=== PATIENT | female | born 1975 | race Caucasian/White ===

== ENCOUNTER 2017-06-27 03:20 | Emergency (ER) | payer SELFPAY ==
[~2017-06-27] VITALS: Ht 162.6 cm; Wt 50.0 kg
[~2017-06-27 03:20] MED LIST: ALBU8I INH; IBUP600T26 PO; ROBA750T3 PO
[2017-06-27 03:22] VITALS: BP 147/81; PULSE 88; RESP 16; TEMP 98.1; O2SAT 100
[2017-06-27] MEDS ORDERED: MECLIZINE HCL 25 MG TAB PO ONE (06:00)
[2017-06-27] MEDS ORDERED: ACETAMIN 325 MG/BUTALBITAL 50 MG/CAFFEINE 40 MG TAB PO ONE (06:30)
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
--- NOTE | 2017-06-27 06:49 | RADRPT ---
EXAM DATE/TIME: 06/27/2017 06:37 [facility] COMPARISON: CT BRAIN W/O CONTRAST, October 17, 2015, 13:39. INDICATIONS : Dizziness RADIATION DOSE: 37.96 CTDIvol (mGy) MEDICAL HISTORY : None SURGICAL HISTORY : None. ENCOUNTER: Initial ACUITY: 1 day PAIN SCALE: 0/10 LOCATION: cranial TECHNIQUE: Multiple contiguous axial images were obtained of the head. Using automated exposure control and adjustment of the mA and/or kV according to patient size, radiation dose was kept as low as reasonably achievable to obtain optimal diagnostic quality images. DICOM format image data is av ailable electronically for review and comparison. FINDINGS: There is no evidence for intracranial hemorrhage, mass effect, mass lesions, edema, or extra-axial fl uid hemorrhagic collections. Arachnoid cyst is again seen in the left middle cranial fossae measures 3.5 cm and not changed. The visualized bony structures appear intact. The ventricles are normal siz e for the patient's age. There are no signs of acute infarction for technique. CONCLUSION: Stable arachnoid cyst on the left side and no acute process. Haleigh Thompson MD on June 27, 2017 at 6:45 Board Certified Radiologist. This report was verified electronically.
[2017-06-27] MEDS ORDERED: MECL-62 PO (06:51)
[2017-06-27] MEDS ORDERED: BUTA1CAP PO (06:51)
[2017-06-27 08:04] VITALS: BP 131/74; PULSE 88; RESP 16; TEMP 98.1; O2SAT 98
[2017-06-27 08:54] VITALS: RESP 16
== END 2017-06-27 09:16 | disposition home or self-care (01) ==
LOC: NEPE 03:20
DX: R42 Dizziness and giddiness (principal); R51 Headache; G93.0 Cerebral cysts; F14.90 Cocaine use, unspecified, uncomplicated; F12.90 Cannabis use, unspecified, uncomplicated; J45.909 Unspecified asthma, uncomplicated; I10 Essential (primary) hypertension; R56.9 Unspecified convulsions; F17.200 Nicotine dependence, unspecified, uncomplicated
CPT/HCPCS: 70450; 84703; 99283

== ENCOUNTER 2017-11-16 23:31 | Inpatient (IN) ==
[2017-11-17] MEDS ORDERED: Sod Chloride 0.9% Inj 1,000 ML IV.SIG ONE (05:18)
[2017-11-17 05:42] LABS: Baso % (Auto) 0.5 % (0.0-2.0); Eos # (Auto) 0.2 th/mm3 (0.0-0.4); Eos % (Auto) 4.2 % (0.0-4.0); Hematocrit 33.1 % (35.0-46.0); Hemoglobin 10.8 gm/dL (11.6-15.3); Lymph # (Auto) 1.4 th/mm3 (1.0-4.8); Mean Corpuscular HGB Conc 32.5 % (32.0-36.0); Mean Corpuscular Hemoglobin 25.5 pg (27.0-34.0); Mean Corpuscular Volume 78.5 fL (80.0-100.0); Mean Platelet Volume 6.7 fL (7.0-11.0); Mono # (Auto) 0.2 th/mm3 (0.0-0.9); Mono % (Auto) 4.6 % (0.0-8.0); Neut # (Auto) 2.2 th/mm3 (1.8-7.7); Neut % (Auto) 55.7 % (16.0-70.0); Platelet Count 338 th/mm3 (150-450); Red Blood Count 4.22 mil/mm3 (4.00-5.30); Red Cell Distribution Width 16.2 % (11.6-17.2); White Blood Count 3.9 th/mm3 (4.0-11.0)
[2017-11-17 06:04] LABS: Anion Gap 12 meq/L (5-15); Blood Urea Nitrogen 10 mg/dL (7-18); Calcium 8.5 mg/dL (8.5-10.1); Carbon Dioxide 18.5 meq/L (21.0-32.0); Chloride 112 meq/L (98-107); Glomerular Filtration Rate Greater Than 89 mL/min (>89); Glucose,Random 83 mg/dL (74-106); Potassium 3.2 meq/L (3.5-5.1); Sodium 142 meq/L (136-145)
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
[2017-11-17] MEDS ORDERED: Ampicillin/Sulbactam Inj 3 GM in Sodium Chloride 0.9% Inj 100 ML IV.SIG ONE (07:49)
[2017-11-17] MEDS ORDERED: Morphine Inj 4 MG/ML Vial IV.PUSH ONE (07:49)
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
[2017-11-17] MEDS ORDERED: Bisacodyl 10 MG Supp RECTAL PRN (08:43)
[2017-11-17] MEDS ORDERED: Acetaminophen 325 MG Tablet PO PRN (08:43)
[2017-11-17] MEDS ORDERED: Sod Chloride 0.9% Inj 1,000 ML IV.CONT SCH (09:30)
[2017-11-17] MEDS: Senna/Docusate Sodium 8.6/50 MG Tablet PO SCH ×2 (09:45→20:27)
--- NOTE | 2017-11-17 10:12 | CT ---
EXAM DATE: 11/17/2017 9:58 AM EDT AGE/SEX: 42 years / Female INDICATIONS: Facial injury. Jaw pain. CLINICAL DATA: This is the patient's initial encounter. Patient reports that signs and symptoms have been present for 1 day and indicates a pain score of 10/10. MEDICAL/SURGICAL HISTORY: . Seizure. Brain cyst. Asthma. None. RADIATION DOSE: . CTDI (mGy) ; Reconstructed from previous dataset, no dose COMPARISON: No prior exams available for comparison. TECHNIQUE: Contiguous images in the axial and coronal planes were obtained using helical multirow de tector technique with 80 ml Omnipaque 350 (iohexol) nonionic water-soluble contrast as a single exam dose. Using automated exposure control and adjustment of the mA and/or kV according to patient size , radiation dose was kept as low as reasonably achievable to obtain optimal diagnostic quality images . DICOM format image data is available electronically for review and comparison. FINDINGS: An oblique nondisplaced fracture is identified through the right mandibular ramus. There is an associ ated mild distraction fracture through the anterior left body of the mandible. Significant overlying soft tissue swelling hematoma is seen along the left mandibular body. The orbits, zygomatic arches and maxillary alba are intact. A nondisplaced fracture is identified through the right lateral pterygoid process. Base of the skull is intact. CONCLUSION: 1. Mandibular fractures involving the right ramus and left body as described 2. Nondisplaced fracture of the right pterygoid plate 3. Significant soft tissue swelling and hematoma along the left body of the mandible. Electronically signed by: Carlitos England MD 11/17/2017 10:11 AM EDT
[2017-11-17 10:44] LABS: Activated Partial Thrombo Time 25.4 sec (24.3-30.1); INR 1.2 Ratio
[2017-11-17] MEDS ORDERED: Naloxone Inj 0.4 MG/ML Vial IV.PUSH PRN (12:57)
[2017-11-17] MEDS ORDERED: Morphine Sulfate Inj 2 MG/ML Vial IV.PUSH PRN (12:57)
[2017-11-17 13:29] LABS: Albumin 2.6 g/dL (3.4-5.0)
[2017-11-17 13:31] LABS: Total Protein 6.3 g/dL (6.4-8.2)
[2017-11-17] MEDS: Morphine Inj 4 MG/ML Vial IV.PUSH PRN ×4 (14:30→23:56)
[2017-11-17] MEDS ORDERED: Potassium Chloride Inj 40 MEQ in Sod Chloride 0.9% Inj 1,000 ML IV.CONT SCH (15:48)
[2017-11-17] MEDS: Pantoprazole Inj 40 MG Vial IV.PUSH SCH (15:53)
[2017-11-17] MEDS ORDERED: Haloperidol Inj 5 MG/ML Ampul IV.PUSH PRN (16:39)
[2017-11-17] MEDS ORDERED: LORazepam 1 MG Tablet PO PRN (16:39)
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
[2017-11-17 22:29] LABS: Amphetamine Screen,Urine Neg (Neg); Barbiturate Screen,Urine Neg (Neg); Cannabinoid Screen,Urine Neg (Neg); Cocaine Screen,Urine Pos (Neg)
[2017-11-17 22:30] LABS: Opiate Screen,Urine Pos (Neg)
[2017-11-17] MEDS: Ampicillin/Sulbactam Inj 3 GM in Sodium Chloride 0.9% Inj 100 ML IV.SIG SCH (23:54)
[2017-11-18] MEDS: Morphine Inj 4 MG/ML Vial IV.PUSH PRN ×4 (02:54→13:52)
[2017-11-18] MEDS: Ampicillin/Sulbactam Inj 3 GM in Sodium Chloride 0.9% Inj 100 ML IV.SIG SCH ×4 (02:55→16:06)
[2017-11-18] MEDS ORDERED: Chlorhexidine Gluconate 2% 1 Pack (2 Cloths) TOPICAL SCH ×2 (06:30→09:45)
[2017-11-18] MEDS ORDERED: Metoprolol Tartrate 25 MG Tablet PO SCH ×2 (06:30→09:45)
[2017-11-18] MEDS ORDERED: Sodium Chlor 0.9% Inj 500 ML IV.SIG SCH ×2 (07:00→10:00)
[2017-11-18 11:02] LABS: Baso % (Auto) 0.5 % (0.0-2.0); Eos # (Auto) 0.2 th/mm3 (0.0-0.4); Eos % (Auto) 4.4 % (0.0-4.0); Hemoglobin 10.5 gm/dL (11.6-15.3); Lymph # (Auto) 1.5 th/mm3 (1.0-4.8); Lymph % (Auto) 32.7 % (9.0-44.0); Mean Corpuscular HGB Conc 32.7 % (32.0-36.0); Mean Corpuscular Hemoglobin 25.6 pg (27.0-34.0); Mean Corpuscular Volume 78.3 fL (80.0-100.0); Mean Platelet Volume 6.9 fL (7.0-11.0); Mono # (Auto) 0.3 th/mm3 (0.0-0.9); Mono % (Auto) 6.7 % (0.0-8.0); Neut # (Auto) 2.5 th/mm3 (1.8-7.7); Neut % (Auto) 55.7 % (16.0-70.0); Platelet Count 281 th/mm3 (150-450); Red Blood Count 4.08 mil/mm3 (4.00-5.30); Red Cell Distribution Width 16.6 % (11.6-17.2); White Blood Count 4.5 th/mm3 (4.0-11.0)
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
[2017-11-18 11:30] LABS: Albumin 2.6 g/dL (3.4-5.0); Anion Gap 9 meq/L (5-15); Aspartate Aminotransferase 59 U/L (15-37); Blood Urea Nitrogen 3 mg/dL (7-18); Calcium 8.5 mg/dL (8.5-10.1); Carbon Dioxide 23.3 meq/L (21.0-32.0); Chloride 113 meq/L (98-107); Glomerular Filtration Rate Greater Than 89 mL/min (>89); Glucose,Random 75 mg/dL (74-106); Magnesium 1.7 mg/dL (1.5-2.5); Potassium 3.6 meq/L (3.5-5.1); Sodium 145 meq/L (136-145)
[2017-11-18 11:31] LABS: Alanine Aminotransferase 71 U/L (10-53)
[2017-11-18 11:33] LABS: Alkaline Phosphatase 390 U/L (45-117); Total Protein 6.1 g/dL (6.4-8.2)
[2017-11-18] MEDS ORDERED: Lidocaine PF 1% Inj 5 ML Syringe INFILTRATN ONE (12:00)
[2017-11-18] MEDS ORDERED: Glycopyrrolate Inj 1 MG/5 ML Syringe IV.PUSH ONE (12:00)
[2017-11-18] MEDS ORDERED: Phenylephrine/NS 1000 MCG/10ML Syringe IV.PUSH ONE (12:00)
[2017-11-18] MEDS ORDERED: Neostigmine Inj 5 MG/5 ML Syringe IV.PUSH ONE (12:00)
[2017-11-18 12:20] LABS: Hepatitis A IgM Antibody Nonreactive (Nonreactive); Hepatitits B Surface Antigen Nonreactive (Nonreactive)
[2017-11-18] MEDS ORDERED: Chlorhexidine Gluconate 0.12% Liq 15 ML UDC ONE (16:21)
[2017-11-18] MEDS ORDERED: Bupivacaine/Epinephrine PF Inj 0.5% 10 ML Vial ONE (16:21)
[2017-11-18] MEDS ORDERED: Lidocaine 2%/Epinephrine 1:200,000 PF Inj 20 ML Vial ONE (16:21)
[2017-11-18] MEDS ORDERED: Microfibrillar Collagen Hemostat 1 GM Packet TOPICAL ONE (18:27)
[2017-11-18] MEDS ORDERED: fentaNYL Citrate Inj 100 MCG/2 ML Ampul ONE ×2 (19:16)
[2017-11-18] MEDS ORDERED: *Meperidine Inj 25 MG/ML Vial PERIprocedural Use ONLY ONE (19:17)
--- NOTE | 2017-11-18 19:21 | P.PCN ---
Date of procedure: 11/18/17 Pre-op diagnosis: left mandible body fracture/ right mandible subcondylar fracture Post-op diagnosis: same Procedure: ORIF left mandible body fracture/ CR right mandible subcondylar fracture( elastics) Anesthesia: GETA, local (2%lidocaine with 1:200,000 epi x 10cc; 0.5%marcaine with 1:200:000 epi 3cc) Surgeon: Robi Nath Estimated blood loss (mL): 30 Pathology: none sent Condition: stable Disposition: PACU
[2017-11-18] MEDS ORDERED: MethylPREDNISolone Sod Succinate Inj 125 MG/2 ML Vial IV.PUSH ONE (19:42)
[2017-11-18] MEDS ORDERED: *morphine SULFATE 4 MG/ML PERIprocedure ONLY ONE ×2 (19:45→20:09)
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
[2017-11-18] MEDS ORDERED: *Ondansetron Inj 4 MG/2 ML Vial PERIprocedural Use ONLY ONE (20:09)
[2017-11-18] MEDS ORDERED: *Promethazine Inj 25 MG/ML Vial PERIprocedural use ONLY ONE (20:12)
[2017-11-19] MEDS: Morphine Inj 4 MG/ML Vial IV.PUSH PRN ×6 (00:17→20:05)
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
[2017-11-19] MEDS: Senna/Docusate Sodium 8.6/50 MG Tablet PO SCH (08:03)
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
[2017-11-19] MEDS: Ampicillin/Sulbactam Inj 3 GM in Sodium Chloride 0.9% Inj 100 ML IV.SIG SCH ×3 (11:53→15:51)
[2017-11-19] MEDS: Pantoprazole Inj 40 MG Vial IV.PUSH SCH ×2 (15:50→15:51)
[2017-11-20] MEDS: Morphine Inj 4 MG/ML Vial IV.PUSH PRN ×2 (03:19→06:39)
[2017-11-20] MEDS: Ampicillin/Sulbactam Inj 3 GM in Sodium Chloride 0.9% Inj 100 ML IV.SIG SCH ×4 (03:20→17:57)
[2017-11-20] MEDS: Senna/Docusate Sodium 8.6/50 MG Tablet PO SCH ×3 (06:19→10:05)
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
[2017-11-20] MEDS: Acetaminophen-HYDROcodone 325/7.5 Liq 15 ML UDC PO PRN ×2 (10:50→17:54)
[2017-11-20 12:11] LABS: Baso % (Auto) 0.3 % (0.0-2.0); Eos # (Auto) 0.1 th/mm3 (0.0-0.4); Eos % (Auto) 1.1 % (0.0-4.0); Hematocrit 29.9 % (35.0-46.0); Hemoglobin 9.7 gm/dL (11.6-15.3); Lymph # (Auto) 1.9 th/mm3 (1.0-4.8); Lymph % (Auto) 31.1 % (9.0-44.0); Mean Corpuscular HGB Conc 32.4 % (32.0-36.0); Mean Corpuscular Hemoglobin 25.4 pg (27.0-34.0); Mean Corpuscular Volume 78.3 fL (80.0-100.0); Mean Platelet Volume 7.1 fL (7.0-11.0); Mono # (Auto) 0.4 th/mm3 (0.0-0.9); Mono % (Auto) 6.5 % (0.0-8.0); Neut # (Auto) 3.7 th/mm3 (1.8-7.7); Platelet Count 293 th/mm3 (150-450); Red Blood Count 3.81 mil/mm3 (4.00-5.30); Red Cell Distribution Width 16.3 % (11.6-17.2)
[2017-11-20 12:38] LABS: Alanine Aminotransferase 38 U/L (10-53); Albumin 2.6 g/dL (3.4-5.0); Alkaline Phosphatase 364 U/L (45-117); Anion Gap 7 meq/L (5-15); Aspartate Aminotransferase 17 U/L (15-37); Blood Urea Nitrogen 4 mg/dL (7-18); Calcium 8.1 mg/dL (8.5-10.1); Carbon Dioxide 28.6 meq/L (21.0-32.0); Carbon Dioxide 29.3 meq/L (21.0-32.0); Chloride 105 meq/L (98-107); Glomerular Filtration Rate Greater Than 89 mL/min (>89); Glucose,Random 83 mg/dL (74-106); Glucose,Random 84 mg/dL (74-106); Potassium 3.9 meq/L (3.5-5.1); Sodium 141 meq/L (136-145); Total Protein 6.6 g/dL (6.4-8.2)
[2017-11-20] MEDS: Pantoprazole Inj 40 MG Vial IV.PUSH SCH (17:57)
[2017-11-25 17:51] LABS: Hepatitis C RNA (PCR) log IUs 5.74 (0-1.18)
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
== END 2017-11-20 18:31 | disposition home or self-care (01) ==
LOC: NEPC 23:31 → NEDA 11-17 08:13 → N06 11-17 15:45
PROVIDERS: ADMIT Family Medicine; ATTEND Family Medicine
PROC: ORIFMAN (2017-11-18 16:47)